=== PATIENT | male | born 1970 | race Hispanic/Latino ===

== ENCOUNTER 2017-06-03 18:26 | Inpatient (IN) | payer MEDICAID, OTHER ==
[~2017-06-03] VITALS: Ht 121.9 cm; Wt 72.5 kg
[2017-06-03 20:51] LABS: HEMATOCRIT 40.9 % (42-54); MEAN CORPUSCULAR HEMOGLOBIN 30.7 pg (27.0-33.0); MEAN CORPUSCULAR HGB CONC 34.6 g/dL (32.0-36.0); MEAN CORPUSCULAR VOLUME 88.7 fL (79-99); PLATELET COUNT (AUTO) 219 K/uL (130-400); RED BLOOD CELL COUNT(AUTO) 4.61 MIL/uL (4.50-6.20); WHITE BLOOD COUNT (AUTO) 19.5 K/uL (4.8-10.8)
[2017-06-03 21:06] LABS: CREATININE 0.4 mg/dL (0.5-1.5); POTASSIUM 3.2 mmol/L (3.5-5.1)
[2017-06-03 21:13] LABS: ALBUMIN 3.3 g/dL (3.5-5.0); BILIRUBIN,TOTAL 0.5 mg/dL (0.2-1.0); TOTAL PROTEIN, SERUM 7.7 g/dL (6.0-8.3)
[2017-06-03 21:20] LABS: BAND NEUTROPHILS % (MANUAL) 2 % (0-2); LYMPHOCYTES % (MANUAL) 9 % (22-44); MAN.DIFF COMMENT-IMPRESSION MANUAL DIFFERENTIAL; MONOCYTES % (MANUAL) 2 % (2-9); PLATELET MORPHOLOGY COMMENT ADEQUATE; REACTIVE LYMPHOCYTES 1 % (0-0); SEGMENTED NEUTROPHILS % 86 % (40-70)
[2017-06-03] MEDS ORDERED: IPRATROPIUM/ALBUTEROL SULFATE 3 ML SOLUTION IH ONE (21:56)
[2017-06-03] MEDS ORDERED: CEFTRIAXONE SODIUM 2 GM VIAL ONE (22:04)
[2017-06-03] MEDS ORDERED: SODIUM CHLORIDE 0.9% 1000ML 1,000 ML IV ONE (22:04)
[2017-06-03 22:40] LABS: APPEARANCE,URINE Cloudy (CLEAR); BILIRUBIN,URINE Negative (NEGATIVE); COLOR,URINE Dark Yellow (YELLOW); GLUCOSE, URINE (UA) Negative (NEGATIVE); KETONES,URINE >=80 mg/dL (NEGATIVE); LEUKOCYTE ESTERASE ,URINE Negative (NEGATIVE); NITRATE,URINE Negative (NEGATIVE); OCCULT BLOOD,URINE Moderate (NEGATIVE); PH,URINE 5.5 (5.0-8.0); PROTEIN,URINE POS 1+ (NEGATIVE)
[2017-06-03 23:12] LABS: BACTERIA,URINE Few /HPF (None Seen); MUCUS,URINE Many LPF (None Seen); SQUAMOUS EPITHELIAL CELL,UR Few /LPF (0-2)
[2017-06-03] MEDS: SODIUM CHLORIDE 0.9% 1000ML 1,000 ML IV SCH (23:42)
[2017-06-03] MEDS ORDERED: HYDRALAZINE HCL 20 MG/ML VIAL IV PRN (23:45)
[2017-06-03] MEDS ORDERED: ACETAMINOPHEN 325 MG TAB PO PRN (23:45)
[2017-06-03] MEDS ORDERED: ONDANSETRON HCL 4 MG/2 ML VIAL IV PRN (23:45)
[2017-06-04] MEDS ORDERED: POTASSIUM CHLORIDE 20MEQ/100ML 100 ML IV PRN
[2017-06-04] MEDS ORDERED: LIDOCAINE HCL-MPF 1% 2ML VIAL IVP PRN
[2017-06-04] MEDS ORDERED: POTASSIUM CHLORIDE 10% ELIXIR 20 MEQ/15 ML UDCUP PO PRN
[2017-06-04] MEDS ORDERED: POTASSIUM CHLORIDE 20 MEQ ERTAB PO PRN
[2017-06-04] MEDS ORDERED: SODIUM CHLORIDE 0.9% 1000ML 1,000 ML IV ONE (03:31)
[2017-06-04 06:33] LABS: BASOPHILS % (AUTO) 0.3 % (0.0-5.0); EOSINOPHILS % (AUTO) 1.5 % (0.0-8.0); MEAN CORPUSCULAR HEMOGLOBIN 29.8 pg (27.0-33.0); MEAN CORPUSCULAR HGB CONC 33.4 g/dL (32.0-36.0); MEAN CORPUSCULAR VOLUME 89.1 fL (79-99); MONOCYTES % (AUTO) 5.9 % (3.0-13.0); NEUTROPHILS % (AUTO) 73.3 % (40.0-77.0); PLATELET COUNT (AUTO) 141 K/uL (130-400); RED BLOOD CELL COUNT(AUTO) 4.15 MIL/uL (4.50-6.20); RED CELL DISTRIBUTION WIDTH 14.3 % (11.0-15.5); WHITE BLOOD COUNT (AUTO) 12.3 K/uL (4.8-10.8)
[2017-06-04 06:41] LABS: CREATININE 0.5 mg/dL (0.5-1.5)
[2017-06-04] MEDS ORDERED: LIDOCAINE HCL-MPF 1% 2ML VIAL ONE (06:48)
[2017-06-04] MEDS ORDERED: POTASSIUM CHLORIDE 20MEQ/100ML 200 ML IV ONE (06:48)
[2017-06-04 08:56] VITALS: BP 155/111
[2017-06-04] MEDS: PANTOPRAZOLE SODIUM 40 MG TABLET.DR PO SCH (09:00)
[2017-06-04] MEDS ORDERED: CEFTRIAXONE 1GM/D5W 50ML 50 ML IV SCH (09:00)
[2017-06-04] MEDS ORDERED: CEFTRIAXONE SODIUM 1 GM ONE (09:27)
[2017-06-04] MEDS ORDERED: PANTOPRAZOLE SODIUM 40 MG TABLET.DR PO ONE (09:27)
[2017-06-04] MEDS: SODIUM CHLORIDE 0.9% 1000ML 1,000 ML IV SCH (09:42)
[2017-06-04] MEDS ORDERED: PHEN125O3 PO (11:09)
[2017-06-04] MEDS ORDERED: CARB200T6 PO (11:09)
[2017-06-04 13:09] VITALS: BP 151/105
[2017-06-04 17:46] VITALS: BP 141/76
[2017-06-04 20:30] VITALS: BP 139/94
[2017-06-04 21:47] VITALS: BP 129/84
[2017-06-04 23:00] VITALS: BP 126/95
[2017-06-04] MEDS: CEFTRIAXONE SODIUM 1 GM IVP SCH (23:17)
[2017-06-05] MEDS: GUAIFENESIN-DM 200/20 MG 10 ML PO PRN ×2 (00:18→21:22)
[2017-06-05] MEDS: SODIUM CHLORIDE 0.9% 1000ML 1,000 ML IV SCH ×3 (00:22→17:51)
[2017-06-05 03:00] VITALS: BP 116/76
[2017-06-05 04:05] LABS: HEMATOCRIT 31.9 % (42-54); MEAN CORPUSCULAR HGB CONC 35.8 g/dL (32.0-36.0); MEAN CORPUSCULAR VOLUME 89.3 fL (79-99); PLATELET COUNT (AUTO) 132 K/uL (130-400); RED BLOOD CELL COUNT(AUTO) 3.57 MIL/uL (4.50-6.20); RED CELL DISTRIBUTION WIDTH 13.9 % (11.0-15.5); WHITE BLOOD COUNT (AUTO) 8.4 K/uL (4.8-10.8)
[2017-06-05 04:47] LABS: BAND NEUTROPHILS % (MANUAL) 6 % (0-2); EOSINOPHILS % (MANUAL) 5 % (1-6); LYMPHOCYTES % (MANUAL) 19 % (22-44); MAN.DIFF COMMENT-IMPRESSION MANUAL DIFFERENTIAL; MONOCYTES % (MANUAL) 7 % (2-9); PLATELET MORPHOLOGY COMMENT SLIGHTLY DECREASED; SEGMENTED NEUTROPHILS % 63 % (40-70)
[2017-06-05 08:00] VITALS: BP 121/83
[2017-06-05] MEDS: CEFTRIAXONE SODIUM 1 GM IVP SCH ×2 (11:35→20:16)
[2017-06-05] MEDS: PANTOPRAZOLE SODIUM 40 MG TABLET.DR PO SCH (11:36)
[2017-06-05 12:00] VITALS: BP 143/92
[2017-06-05 16:00] VITALS: BP 125/96
[2017-06-05 19:20] VITALS: BP 124/78
[2017-06-05 23:33] VITALS: BP 131/92
[2017-06-06] MEDS: SODIUM CHLORIDE 0.9% 1000ML 1,000 ML IV SCH (01:42)
[2017-06-06 03:45] VITALS: BP 132/95
[2017-06-06 08:00] VITALS: BP 133/87
[2017-06-06] MEDS ORDERED: PHENYTOIN SODIUM 100 MG ERCAP PO SCH ×2 (09:00→21:00)
[2017-06-06] MEDS ORDERED: CARBAMAZEPINE 200 MG TABLET PO SCH ×2 (09:00→21:00)
[2017-06-06] MEDS: PANTOPRAZOLE SODIUM 40 MG TABLET.DR PO SCH (09:07)
[2017-06-06] MEDS: CEFTRIAXONE SODIUM 1 GM IVP SCH (09:07)
[2017-06-06 12:05] VITALS: BP 124/87
[2017-06-06] MEDS ORDERED: CEFD250S3 PO (13:49)
== END 2017-06-06 16:47 | disposition home or self-care (01) | DRG 871 ==
LOC: EDH 18:26 → EDHIP 18:27 → 3BH 06-04 20:04
PROVIDERS: ADMIT Family Medicine; ATTEND Family Medicine
DX: A41.9 Sepsis, unspecified organism (principal); G82.50 Quadriplegia, unspecified; G04.90 Encephalitis and encephalomyelitis, unspecified; J18.9 Pneumonia, unspecified organism; E87.6 Hypokalemia; G40.909 Epilepsy, unspecified, not intractable, without status epilepticus; J10.1 Influenza due to other identified influenza virus with other respiratory manifestations; J20.9 Acute bronchitis, unspecified
CPT/HCPCS: 36415; 71046; 80048; 80053; 81001; 83605; 84132; 85025; 87040; 87804; 94640; A4218; J0696; J3480; J3490; J7030